=== PATIENT | male | born 1935 | race Caucasian/White ===

== ENCOUNTER 2016-12-06 05:41 | Inpatient (IN) | payer MEDICARE, OTHER ==
--- NOTE | ~2016-12-06 | HP ---
History And Physical [facility] [address] [place]. [address] NAME: BECCA MCGOWAN : 39 STATUS : REG REF PAT#: [id number] AGE: 81 ADM/REG DATE : 12/06/16 MR#: [id number] REPORT SERV DATE: 12/06/16 DICTATED BY: CHAVA ROJAS DATE: 12/06/16 REPORT STATUS : Draft TRANSCRIBED BY: MODL DATE: 12/06/16 DATE OF ADMISSION: 12/06/2016 Cardiology Admission History And Physical IDENTIFYING DATA: The patient is a 81-year-old man with known coronary heart disease and ischemic cardiomyopathy who is a patient of Dr. Trenton Valle. CHIEF COMPLAINT: The patient is admitted for observation after being referred for elective coronary angiography. The patient has been complaining of anginal type substernal chest pain for several weeks. HISTORY OF PRESENT ILLNESS: Mr. Mcgowan is a pleasant 81-year-old man with a history of coronary artery disease, status post coronary artery bypass grafting surgery in approximately the year 2007. The patient was in his usual state of health until several weeks ago. The patient was apparently seen by Dr. Trenton Valle for evaluation of anginal type substernal chest pain. A myocardial perfusion imaging study was ordered for risk stratification. This demonstrated an inferolateral infarction with basal inferolateral myocardial ischemia and a left ventricular ejection fraction of approximately 35%. The patient was referred for elective coronary angiography. The patient does apparently have a history of chronic kidney disease based on a review of his previous labs. However, the patient's baseline creatinine is approximately 1.4 to 1.6. The patient's creatinine this morning was found to be 2.02. His last creatinine was approximately 1.6 in 05/2016. Due to the significant increase in the patient's serum creatinine, the cardiac catheterization has been cancelled. The patient will be admitted for IV fluid rehydration. Of note, the patient has never had a previous nephrology evaluation. The patient and his family requesting Nephrology evaluation during this admission if possible. PAST MEDICAL HISTORY: 1. Coronary artery disease, status post coronary artery bypass grafting surgery in the year 2007 and subsequent percutaneous coronary intervention. 2. History of goiter/thyroidectomy. 3. Dyslipidemia. 4. Hypertension. 5. Peripheral neuropathy. 6. Type 2 diabetes. 7. Prostate cancer, status post radiation treatment. 8. History of ventricular tachycardia with AICD placement. 9. Mild dementia. PAST SURGICAL HISTORY: Significant for coronary artery bypass grafting surgery and ICD implantation. FAMILY HISTORY: Noncontributory. History And Physical [address] [address] NAME: BECCA MCGOWAN : 39 STATUS : REG REF PAT#: [id number] AGE: 81 ADM/REG DATE : 12/06/16 MR#: [id number] REPORT SERV DATE: 12/06/16 DICTATED BY: CHAVA ROJAS DATE: 12/06/16 REPORT STATUS : Draft TRANSCRIBED BY: PRABHU DATE: 12/06/16 SOCIAL HISTORY: The patient is a previous smoker, but no longer uses tobacco, alcohol, or recreational drugs. The patient is and apparently previously operated car dealerships. ALLERGIES: THE PATIENT HAS DOCUMENTED ALLERGIES TO SULFA DRUGS, ADHESIVE TAPE, LYRICA, AND SEROQUEL. HOME MEDICATIONS: 1. Aspirin 81 mg p.o. daily. 2. Carvedilol 3.125 mg p.o. twice daily. 3. Plavix 75 mg p.o. q.a.m. 4. Aricept 5 mg p.o. daily. 5. Ferrous sulfate 325 mg p.o. twice daily. 6. Lasix 40 mg p.o. q.a.m. 7. Gabapentin 300 mg p.o. twice daily. 8. Isosorbide mononitrate 15 mg p.o. daily. 9. Namenda 5 mg p.o. q.a.m. and 10 mg p.o. q.p.m. 10.Metformin 500 mg p.o. twice daily. 11.Foltanx vitamin supplement one tablet daily. 12.Sublingual nitroglycerin 0.4 mg q.5 minutes as needed. 13.Protonix 40 mg p.o. q.a.m. 14.Potassium chloride 20 mEq p.o. twice daily. 15.VESIcare 5 mg p.o. daily. 16.Tamsulosin 0.4 mg p.o. at bedtime. REVIEW OF SYSTEMS: A complete 12-system review was performed. In addition to the symptoms mentioned above, the patient reports a recent sinus infection for which he was given an antibiotic. The patient reports, he took his last dose of the antibiotic yesterday. He is unable to recall the name of the antibiotic, but does not believe it was Bactrim. Additionally, the patient does have a sulfa allergy as noted above. The remainder of the 12 system review is noncontributory except for the pertinent positives and negatives noted in the history of present illness above. PHYSICAL EXAMINATION: VITAL SIGNS: Temperature is 98.2 degrees Fahrenheit, blood pressure is 148/65 mmHg, respirations 14, oxygen saturation is 97% on room air. CONSTITUTIONAL: The patient is an obese elderly white man in no acute distress. EYES: PERRL, EOMI, clear conjunctiva. HEAD/MNT: NCAT with moist mucous membranes and grossly normal hard and soft palate. NECK: Supple with no obvious thyromegaly or lymphadenopathy CARDIOVASCULAR: There is a regular rhythm with a normal S1 and a physiologically split second heart sound. No significant murmurs, rubs, or gallops are noted. The jugular venous pressure appears grossly normal. ANTERIOR CHEST WALL: There is a well-healed sternotomy scar. The patient's defibrillator site appears normal. History And Physical [address] [address] NAME: BECCA MCGOWAN : 39 STATUS : REG REF PAT#: [id number] AGE: 81 ADM/REG DATE : 12/06/16 MR#: [id number] REPORT SERV DATE: 12/06/16 DICTATED BY: CHAVA ROJAS DATE: 12/06/16 REPORT STATUS : Draft TRANSCRIBED BY: MODManuelito DATE: 12/06/16 PULMONARY: Clear to auscultation bilaterally, no wheezing, rales or rhonchi noted. No dullness to percussion. Non-labored. ABDOMINAL: Soft, non-tender, non-distended with no hepatosplenomegaly noted. EXTREMITIES: No clubbing, cyanosis or edema. MUSCULOSKELETAL: Grossly normal strength and range of motion in all extremities INTEGUMENTARY: Skin appears intact with no bruises, wounds or active lesions noted NEURO/PSYC: Alert and oriented x3, with no dysarthria, facial droop or lateralizing weakness noted. 12-LEAD EKG: The patient's 12-lead EKG shows sinus rhythm with a right bundle branch block pattern and borderline right axis deviation. Atrial bigeminy is noted. There were occasional PVCs. LABORATORY DATA: CBC shows a white blood cell count of 7.1, hemoglobin 10.1, hematocrit 31, platelets 154. Electrolytes show a sodium of 142, potassium 4.3, chloride is 108, CO2 of 28, BUN 41, creatinine is 2.02, estimated GFR is 30, glucose is 122, calcium 8.9. ASSESSMENT AND PLAN: 1. Ziros-gz-ktbjejy kidney disease: The patient's creatinine at this time is consistent with borderline stage 3-4 chronic kidney disease. The patient denies any previous nephrology evaluation. The patient will be admitted for IV rehydration before contemplating cardiac catheterization. We will request a nephrology consultation, to make pre cath recommendations. I feel it would be reasonable to delay the patient's cardiac catheterization if the Nephrology Service feels this would be necessary to complete the patient's workup. Should the patient's creatinine improve with IV fluid repletion, and should the Nephrology Service agrees, we will proceed with cardiac catheterization and PCI as warranted tomorrow. 2. Type 2 diabetes: We will discontinue metformin in the setting of newly diagnosed chronic kidney disease. The patient will be started on sliding scale insulin. 3. Chronic systolic heart failure: The patient appears euvolemic at this time. We will hold Lasix until the patient's creatinine has returned to baseline. H/MODL Chava Rojas MD / [id number] CC: MD Ting Morales MD
--- NOTE | ~2016-12-06 | CN ---
Consultation Report [facility] [address] [place]. [address] NAME: BECCA GROSS : 39 STATUS : REG REF PAT#: [id number] AGE: 81 ADM/REG DATE : 12/06/16 MR#: [id number] REPORT SERV DATE: 12/06/16 DICTATED BY: EFRA FRY JR DATE: 12/06/16 REPORT STATUS : Draft TRANSCRIBED BY: MODL DATE: 12/06/16 NEPHROLOGY CONSULTATION DATE OF CONSULTATION: 12/06/2016 REASON FOR CONSULTATION: Acute renal failure. IMPRESSION: 1. Acute renal on top of chronic kidney disease. 2. Chronic kidney disease, stage 3, indeterminate etiology. a. Diabetes. b. Known diffuse vascular disease. c. Hypertensive disorder. d. Senescence. e. Possibility of obstructive nephropathy. 3. Diabetes, of unknown duration five to six years, with reported A1cs in the six to seven range. 4. Diffuse atherosclerotic cardiovascular disease, with heavy calcification of the coronary epicardial vessels. 5. Hypertensive disorder. 6. obstructive disease. 7. Benign prostatic hypertrophy. 8. Remote humerus fracture. 9. Remote adverse drug reaction to Lyrica with altered mentation. 10.Also allergy to sulfa, reaction not known. 11.Obstructive sleep apnea. 12.Normocytic anemia. 13.Obesity. 14.Peripheral neuropathy attributed to diabetes. 15.Remote thyroid surgery, not otherwise specified. 16.History of prostate cancer. 17.Remote history of cerebrovascular accident, not otherwise specified. 18.Gastroesophageal reflux disease. RECOMMENDATIONS: 1. Evaluate for other causes of nephropathy, including nephritis. 2. Evaluate serum and urine immunofixation studies in this older gentleman with some degree of proteinuria. 3. Quantitate the proteinuria. 4. Renal ultrasonography today looking for obstructive disease particularly. 5. I will get a Doppler study of the renal arteries on outpatient basis. 6. I will plug him into chronic kidney disease clinic for longitudinal management. 7. He should be cleared for coronary arteriography, risk and benefits discussed with the patient, including 1% risk of dialysis and 20% to 25% risk of transient nephropathy. Consultation Report [place] [address] [place]. [address] NAME: BECCA GROSS : 39 STATUS : REG REF PAT#: [id number] AGE: 81 ADM/REG DATE : 12/06/16 MR#: [id number] REPORT SERV DATE: 12/06/16 DICTATED BY: EFRA FRY JR DATE: 12/06/16 REPORT STATUS : Draft TRANSCRIBED BY: PRABHU DATE: 12/06/16 Discussed with the patient and his in full. Questions are answered. They acknowledged understanding. HISTORY: Gentleman with known coronary artery disease, has been having angina pectoralis type symptoms and has come in for cardiac catheterization. This morning, his creatinine was 2.0. That is up from his baseline 1.6 to 1.7. He has been called chronic kidney disease throughout previous medical records, but has not been seen by Nephrology. He has had diabetes of a known short duration. He has exogenous obesity. He is a remote smoker, but reformed four years ago. He had bypass surgery remotely. He has four or five epicardial stents. He has an AICD. He has a chronic pain syndrome, and historically has been followed by pain management services. He has diabetic peripheral neuropathy, but reports of others. He is not known to have any peripheral vascular disease demonstrated. He does not use anti- inflammatories, and he has not been currently on Danny nor ARB. This would apply to this examiner that he has been tried on these medications in the past with alterations in renal function. He has some voiding symptomatology, particularly in the morning, difficulty with getting the urinary stream going. He has some lower extremity edema late in the evening, that has resolved by morning. Recently, he had been on Lasix 40 mg twice daily, but the doses was reduced to 40 mg once a day. He acknowledges a positive urinary response to the dosing of the Lasix. He has not experienced gross hematuria, and there is no report of foamy urine. He is not aware of proteinuria. PAST MEDICAL HISTORY: Well outlined above. MEDICATIONS ON ENTRY: Aspirin 81 mg, carvedilol 3.125 mg twice daily, clopidogrel 75 mg daily, Aricept 5 mg daily, iron sulfate 325 mg two a day, furosemide 40 mg daily, gabapentin 300 mg twice a day, isosorbide 15 mg daily, Namenda 5 mg daily, Namenda 10 mg nightly, metformin 500 mg b.i.d., last dose was 48 hours ago, methyl B12 and folate vitamin 1 daily, nitroglycerin p.r.n., pantoprazole 40 mg daily, potassium chloride 20 mEq twice a day, VESIcare 5 mg daily, and tamsulosin 0.4 mg nightly. ALLERGIES: STATED TO SULFA, LYRICA, AND SEROQUEL. FAMILY HISTORY: Notable for coronary artery disease. Father apparently of either colon or prostate cancer. REVIEW OF SYSTEMS: Not otherwise positive for head, neck, pulmonary, cardiac, GI, musculoskeletal, other neurological, integumentary, or psychiatric complaints. PHYSICAL EXAMINATION: GENERAL: Obese white male, who is awake, alert, answers questions appropriately. HEENT: Cranium, normocephalic. No alopecia. Pupils are equal, no icterus. No periorbital edema. No nasal discharge. No epistaxis. Oral mucous membranes are moist. Facial symmetry is present. NECK: Carotid bruits are not heard. Neck vein distention is not seen. Trachea is midline. Consultation Report [place] [address] [facility] [place]. [address] NAME: BECCA GROSS : 39 STATUS : REG REF PAT#: [id number] AGE: 81 ADM/REG DATE : 12/06/16 MR#: [id number] REPORT SERV DATE: 12/06/16 DICTATED BY: EFRA FRY JR. DATE: 12/06/16 REPORT STATUS : Draft TRANSCRIBED BY: MODManuelito DATE: 12/06/16 No palpable adenopathy of the of the neck. LUNGS: Clear to auscultation, unlabored respirations. HEART: Tones regular without rub, murmur, or gallop appreciated. ABDOMEN: Obese, soft, doughy, nontender without visceromegaly. Bowel sounds present. Bruits not heard. No suprapubic fullness or tenderness. GENITALIA: Not examined. EXTREMITIES: With trace dependent lower extremity edema, some venous stasis changes, symmetrically diminished distal pulses, absent cyanosis. Distal hair loss is appreciated. NEUROLOGIC: Cognition and speech are normal. Fund of knowledge is good. Moves all extremities. Gait not currently examined. PSYCHIATRIC: Affect is normal, cooperative, and interacts well with examiner. INTEGUMENT: Skin is intact, without obvious rash, and the turgor is good. LABORATORY DATA: Creatinine as noted is 2.0, giving an estimated GFR of 35 mL/minute. Electrolytes are otherwise okay, calcium is normal, phosphorus is normal. He does not have pronounced metabolic acidemia, he has a hemoglobin of 10 g and a normal platelet count. Available imaging has been reviewed. Currently, he is in the short-stay unit bed 6. Thank you for the consultation. PIPO/PRABHU Efra Fry Jr, M.D. / [id number] CC: MD Ting Morales MD Robert Berglund, M.D. Ross A. Cohn, M.D.
[~2016-12-06 05:41] MED LIST: ACIPHEX PO; AMIT10 PO; ARICEPT5 PO; ASAB PO; B121000P IM; B121000P IM/SC; CHOLESTEROL MED PO; CLARIT10 PO; CLEOCIN300 MG PO; COMPOUNDED CREAM TOP; CONSTULOSE PO; COREG3 PO; COREG6 PO; CRANBERRY EXTRACT PO; CRANBERRY425 MG PO; CYMBALTA20 PO; CYMBALTA60 PO; D.O.S.100 MG PO; DIABET2.5 PO; DSS PO; FERROCITE PO; FERROUS SULF325 M1 PO; FISH-EPA1000 MG PO; FLOMAX4 PO; FLONASE NAS; FLORASTOR250 MG PO; FOLTANX TABLET1 EACH PO; GLUCOPHAGE1000 MG PO; GLUCPH PO; HALF81 PO; HUMALOG SC; HYCODAN1 M1 PO; IMDUR30 PO; IRON325 MG PO; JANUVIA50 PO; K500 PO; KDUR20 PO; KEPPRA250 PO; KEPPRA500 PO; KLOR-CON M2020 MEQ PO; L20 PO; L40 PO; LESXL80 PO; LIDODERM TOP; LIPITOR10 PO; LIPITOR20 PO; LIPITOR40 PO; LIPOTRIAD1 CAP PO; LOP25 PO; LYRICA100 MG PO; LYRICA50 PO; MAXIMUM D3 PO; MELA3 PO; METANX PO; METHOC500B PO; MIRALAXPKT PO; MONOKET PO; MOVANTIK12.5 MG PO; NAMENDA10 MG PO; NAMENDA5 PO; NASACORTAQ NAS; NEUR100 PO; NEUR300 PO; NEUR400 PO; NEUR600 PO; NEUR800 PO; NITROSTAT0.4 MG SL; NORCO1 TA1 PO; NORCO1 TA2 PO; NORCO1 TAB PO; OCUVITE PO; P20 PO; PCET PO; PEP20 PO; PLAVIX PO; PREPARATIO2 PR; PRILOSEC10 MG PO; PRILOSEC40 MG PO; PROAIR HFA INH; PROTONIX PO; REM15 PO; SUPER B COMP PO; SYMBICORT 160/41 INH INH; TEARS PLUS OPH; VESICARE5 PO; VIB50 PO; VITAMIN B PO; VITAMIN B-122500 MCG SL; VITAMIN D1000 UNI1 PO; VITAMIN D400 UNI1 PO; VITD PO; ZANTAC 75 PO; ZAROX2.5B PO; ZOCOR40 PO; ZOCOR80 MG PO; [UNRECOGNIZED DRUG - OTHER]; [UNRECOGNIZED DRUG - OTHER] PO; [UNRECOGNIZED DRUG - OTHER] PO
[2016-12-06 06:24] LABS: BASOPHILS 0.4 %; BASOPHILS ABSOLUTE 0.03 10/3/uL (0.0-0.16); EOSINOPHILS 2.4 %; EOSINOPHILS ABSOLUTE 0.17 10/3/uL (0.0-0.53); HEMATOCRIT 30.5 % (40.0-51.0); HEMOGLOBIN 10.1 g/dL (13.6-17.8); IMMATURE GRANULOCYTES 0.6 %; IMMATURE GRANULOCYTES ABSOLUTE 0.04 10/3/uL (0.0-0.11); LYMPHOCYTES 17.9 %; LYMPHOCYTES ABSOLUTE 1.27 10/3/uL (0.67-4.30); MANUAL DIFF NO %; MEAN CORPUS HGB CONC 33.1 g/dL (32.0-36.0); MEAN CORPUSCULAR HEMOGLOB 28.1 pg (26.0-34.0); MEAN PLATELET VOLUME 8.2 fL (9.2-13.0); MONOCYTES 6.4 %; MONOCYTES ABSOLUTE 0.45 10/3/uL (0.21-1.20); NEUTROPHILS 72.3 %; NEUTROPHILS ABSOLUTE 5.12 10/3/uL (2.02-8.40); PLATELET COUNT 154 10/3/uL (150-400); RED CELL COUNT 3.59 10/6/uL (4.7-6.1); WHITE BLOOD CELLS 7.1 10/3/uL (4.5-10.5)
[2016-12-06 06:45] LABS: CALCIUM, SERUM 8.9 MG/DL (8.5-10.4); CHLORIDE, SERUM 108 MMOL/L (96-112); CHOLESTEROL 173 MG/DL (< 200); CO2 (CARBON DIOXIDE) 28 MMOL/L (24-34); CREATININE 2.02 MG/DL (0.70-1.30); GFR AFRICAN AMERICAN 35 ML/MIN (>=60); GFR NON AFRICAN AMERICAN 30 ML/MIN (>=60); HDL CHOLESTEROL 29 MG/DL (> 39); LDL CHOLESTEROL 112 MG/DL (< 130); NON-HDL CHOLESTEROL 144 MG/DL (< 160); POTASSIUM, SERUM 4.3 MMOL/L (3.5-5.3); SODIUM, SERUM 142 MMOL/L (135-148); TRIGLYCERIDE 163 MG/DL (< 150)
[2016-12-06 06:46] LABS: BUN (BLOOD UREA NITROGEN) 41 MG/DL (6-23); GLUCOSE, SERUM 122 MG/DL (60-99)
[2016-12-06 14:20] LABS: ASCORBIC ACID (UR NOT ORDER) NEG (NEG); BILIRUBIN, URINE NEGATIVE (NEG); KETONE, URINE NEGATIVE (NEG); LEUKOCYTE ESTERASE(NOT OR NEG (NEG); WBC (NOT ORDERED) (RFLEX) < 1 (0-5)
[2016-12-07 04:36] LABS: BASOPHILS 0.1 %; BASOPHILS ABSOLUTE 0.01 10/3/uL (0.0-0.16); CALCIUM, SERUM 8.6 MG/DL (8.5-10.4); CHLORIDE, SERUM 111 MMOL/L (96-112); CO2 (CARBON DIOXIDE) 26 MMOL/L (24-34); EOSINOPHILS 1.9 %; EOSINOPHILS ABSOLUTE 0.13 10/3/uL (0.0-0.53); GFR AFRICAN AMERICAN 52 ML/MIN (>=60); GFR NON AFRICAN AMERICAN 45 ML/MIN (>=60); GLUCOSE, SERUM 122 MG/DL (60-99); HEMATOCRIT 28.8 % (40.0-51.0); HEMOGLOBIN 9.4 g/dL (13.6-17.8); IMMATURE GRANULOCYTES 0.6 %; IMMATURE GRANULOCYTES ABSOLUTE 0.04 10/3/uL (0.0-0.11); LYMPHOCYTES 20.4 %; LYMPHOCYTES ABSOLUTE 1.38 10/3/uL (0.67-4.30); MEAN CORPUS HGB CONC 32.6 g/dL (32.0-36.0); MEAN CORPUSCULAR VOLUME 85.7 fL (80-100); MEAN PLATELET VOLUME 8.8 fL (9.2-13.0); MONOCYTES 5.9 %; NEUTROPHILS 71.1 %; PLATELET COUNT 170 10/3/uL (150-400); POTASSIUM, SERUM 4.2 MMOL/L (3.5-5.3); RBC DISTRIBUTION WIDTH 16.3 % (12.0-16.0); RED CELL COUNT 3.36 10/6/uL (4.7-6.1); SODIUM, SERUM 143 MMOL/L (135-148); WHITE BLOOD CELLS 6.8 10/3/uL (4.5-10.5)
[2016-12-07 04:37] LABS: BUN (BLOOD UREA NITROGEN) 32 MG/DL (6-23); CREATININE 1.47 MG/DL (0.70-1.30)
[2016-12-07 04:40] LABS: MANUAL DIFF NO %
[2016-12-08 03:59] LABS: BASOPHILS 0.3 %; BASOPHILS ABSOLUTE 0.02 10/3/uL (0.0-0.16); EOSINOPHILS 2.2 %; EOSINOPHILS ABSOLUTE 0.16 10/3/uL (0.0-0.53); HEMATOCRIT 30.3 % (40.0-51.0); HEMOGLOBIN 9.9 g/dL (13.6-17.8); IMMATURE GRANULOCYTES 0.3 %; IMMATURE GRANULOCYTES ABSOLUTE 0.02 10/3/uL (0.0-0.11); LYMPHOCYTES 20.1 %; LYMPHOCYTES ABSOLUTE 1.44 10/3/uL (0.67-4.30); MEAN CORPUS HGB CONC 32.7 g/dL (32.0-36.0); MEAN CORPUSCULAR HEMOGLOB 28.5 pg (26.0-34.0); MEAN CORPUSCULAR VOLUME 87.3 fL (80-100); MEAN PLATELET VOLUME 8.5 fL (9.2-13.0); MONOCYTES 7.4 %; MONOCYTES ABSOLUTE 0.53 10/3/uL (0.21-1.20); NEUTROPHILS 69.7 %; PLATELET COUNT 153 10/3/uL (150-400); RBC DISTRIBUTION WIDTH 16.4 % (12.0-16.0); RED CELL COUNT 3.47 10/6/uL (4.7-6.1); WHITE BLOOD CELLS 7.2 10/3/uL (4.5-10.5)
[2016-12-08 04:00] LABS: MANUAL DIFF NO %
[2016-12-08 04:11] LABS: ALBUMIN 3.3 G/DL (3.5-5.0); CALCIUM, SERUM 8.6 MG/DL (8.5-10.4); CHLORIDE, SERUM 112 MMOL/L (96-112); CHOL/HDL RATIO(NOT ORDER) 5.5 (0-5); CHOLESTEROL 144 MG/DL (< 200); CO2 (CARBON DIOXIDE) 26 MMOL/L (24-34); CREATININE 1.32 MG/DL (0.70-1.30); GFR AFRICAN AMERICAN 59 ML/MIN (>=60); GFR NON AFRICAN AMERICAN 51 ML/MIN (>=60); GLUCOSE, SERUM 98 MG/DL (60-99); HDL CHOLESTEROL 26 MG/DL (> 39); LDL CHOLESTEROL 86 MG/DL (< 130); NON-HDL CHOLESTEROL 118 MG/DL (< 160); PHOSPHORUS, SERUM 3.2 MG/DL (2.5-4.5); POTASSIUM, SERUM 4.3 MMOL/L (3.5-5.3); SODIUM, SERUM 143 MMOL/L (135-148); TRIGLYCERIDE 161 MG/DL (< 150)
[2016-12-08 04:12] LABS: BUN (BLOOD UREA NITROGEN) 25 MG/DL (6-23)
[2016-12-09] MEDS ORDERED: LIPITOR80 MG PO (04:38)
[2016-12-09 06:31] LABS: BASOPHILS 0.3 %; BASOPHILS ABSOLUTE 0.02 10/3/uL (0.0-0.16); EOSINOPHILS 2.5 %; EOSINOPHILS ABSOLUTE 0.16 10/3/uL (0.0-0.53); HEMOGLOBIN 8.7 g/dL (13.6-17.8); IMMATURE GRANULOCYTES 0.2 %; IMMATURE GRANULOCYTES ABSOLUTE 0.01 10/3/uL (0.0-0.11); LYMPHOCYTES 20.8 %; LYMPHOCYTES ABSOLUTE 1.35 10/3/uL (0.67-4.30); MEAN CORPUS HGB CONC 32.1 g/dL (32.0-36.0); MEAN CORPUSCULAR HEMOGLOB 27.6 pg (26.0-34.0); MONOCYTES 9.9 %; MONOCYTES ABSOLUTE 0.64 10/3/uL (0.21-1.20); NEUTROPHILS 66.3 %; NEUTROPHILS ABSOLUTE 4.31 10/3/uL (2.02-8.40); PLATELET COUNT 135 10/3/uL (150-400); RBC DISTRIBUTION WIDTH 16.6 % (12.0-16.0); RED CELL COUNT 3.15 10/6/uL (4.7-6.1); WHITE BLOOD CELLS 6.5 10/3/uL (4.5-10.5)
[2016-12-09 06:32] LABS: HEMATOCRIT 27.1 % (40.0-51.0); MANUAL DIFF NO %
[2016-12-09 06:42] LABS: BUN (BLOOD UREA NITROGEN) 18 MG/DL (6-23); CALCIUM, SERUM 8.3 MG/DL (8.5-10.4); CHLORIDE, SERUM 113 MMOL/L (96-112); CO2 (CARBON DIOXIDE) 26 MMOL/L (24-34); CREATININE 1.19 MG/DL (0.70-1.30); GFR AFRICAN AMERICAN 67 ML/MIN (>=60); GFR NON AFRICAN AMERICAN 58 ML/MIN (>=60); GLUCOSE, SERUM 93 MG/DL (60-99); POTASSIUM, SERUM 4.3 MMOL/L (3.5-5.3); SODIUM, SERUM 146 MMOL/L (135-148)
== END 2016-12-09 11:33 | disposition home or self-care (01) | DRG 247 ==
LOC: CORLMH 05:41 → SSU1 05:50
PROVIDERS: Internal Medicine Cardiovascular Disease; Internal Medicine Nephrology
PROC: 4A023N7 Measurement of Cardiac Sampling and Pressure, Left Heart, Percutaneous Approach (ICD-10-PCS; 2016-12-07)
PROC: B2151ZZ Fluoroscopy of Left Heart using Low Osmolar Contrast (ICD-10-PCS; 2016-12-07)
PROC: B2131ZZ Fluoroscopy of Multiple Coronary Artery Bypass Grafts using Low Osmolar Contrast (ICD-10-PCS; 2016-12-07)
PROC: B2181ZZ Fluoroscopy of Left Internal Mammary Bypass Graft using Low Osmolar Contrast (ICD-10-PCS; 2016-12-07)
PROC: B2111ZZ Fluoroscopy of Multiple Coronary Arteries using Low Osmolar Contrast (ICD-10-PCS; 2016-12-07)
PROC: 027034Z Dilation of Coronary Artery, One Artery with Drug-eluting Intraluminal Device, Percutaneous Approach (ICD-10-PCS; principal; 2016-12-08)
DX: I25.110 Atherosclerotic heart disease of native coronary artery with unstable angina pectoris (principal); N17.9 Acute kidney failure, unspecified; I50.22 Chronic systolic (congestive) heart failure; F03.90 Unspecified dementia, unspecified severity, without behavioral disturbance, psychotic disturbance, mood disturbance, and anxiety; E11.22 Type 2 diabetes mellitus with diabetic chronic kidney disease; I13.0 Hypertensive heart and chronic kidney disease with heart failure and stage 1 through stage 4 chronic kidney disease, or unspecified chronic kidney disease; E78.5 Hyperlipidemia, unspecified; E11.51 Type 2 diabetes mellitus with diabetic peripheral angiopathy without gangrene; N18.3 Chronic kidney disease, stage 3 (moderate); F40.298 Other specified phobia; I25.5 Ischemic cardiomyopathy; I45.10 Unspecified right bundle-branch block; D64.9 Anemia, unspecified; N40.1 Benign prostatic hyperplasia with lower urinary tract symptoms; I49.3 Ventricular premature depolarization; K21.9 Gastro-esophageal reflux disease without esophagitis; E66.9 Obesity, unspecified; G47.33 Obstructive sleep apnea (adult) (pediatric); Z95.1 Presence of aortocoronary bypass graft; Z95.5 Presence of coronary angioplasty implant and graft; Z88.2 Allergy status to sulfonamides; Z88.8 Allergy status to other drugs, medicaments and biological substances; Z85.46 Personal history of malignant neoplasm of prostate; Z86.73 Personal history of transient ischemic attack (TIA), and cerebral infarction without residual deficits; Z87.891 Personal history of nicotine dependence; Z82.49 Family history of ischemic heart disease and other diseases of the circulatory system; Z80.0 Family history of malignant neoplasm of digestive organs; Z80.42 Family history of malignant neoplasm of prostate
CPT/HCPCS: 76775; 80048; 80061; 80069; 81001; 82570; 82962; 83735; 84156; 85025; 85347; 86334; 86335; 93005; 93452; 93459; 93571; 99152; 99153; A9270-GY; C1713; C1725; C1769; C1874; C1887; C1894; C9600; J2250; J3010; Q9967